=== PATIENT | male | born 1995 | race Caucasian/White ===

== ENCOUNTER 2016-10-04 20:43 | Emergency (ER) | payer BC ==
[2016-10-04 21:20] LABS: Hematocrit 41 % (42-52); Hemoglobin 14.1 g/dl (14.0-18.0); Mean Corpuscular HGB Conc 35 g/dl (31-36); Mean Corpuscular Hemoglobin 30 pg (27-31); Mean Corpuscular Volume 86 fL (80-94); Mean Platelet Volume 10 um3 (7.4-10.4); Red Cell Distribution Width 13 % (10.5-15); White Blood Count 8.4 10^3/ul (3.5-10.8)
[2016-10-04 21:31] LABS: Albumin 4.6 g/dL (3.2-5.2); BUN/Creatinine Ratio 5.7 (8-20); Calcium 9.5 mg/dL (8.6-10.3); EGFR Non-African American 110.4 (>60); Globulin 3.3 g/dL (2-4); Potassium 3.1 mmol/L (3.5-5.0); Total Bilirubin 0.8 mg/dL (0.2-1.0); Total Protein 7.9 g/dL (6.4-8.9)
[2016-10-04] MEDS ORDERED: Ketorolac INJ* 30 MG/ML 1 ML VIAL IV ONE (22:31)
[2016-10-04] MEDS ORDERED: NS 0.9% 1000 ML* 2,000 ML IV ONE (22:31)
[2016-10-04] MEDS ORDERED: Ondansetron INJ* 2 MG/ML VIAL IV ONE (22:31)
[2016-10-04] MEDS ORDERED: Acetaminophen TAB* 325 MG PO ONE (22:31)
[2016-10-04 22:35] LABS: Urine Bilirubin Negative (Negative); Urine Glucose Negative (Negative); Urine Nitrite Negative (Negative)
[2016-10-05] MEDS ORDERED: Ondansetron INJ* 2 MG/ML VIAL IV ONE (00:33)
[2016-10-05] MEDS ORDERED: Oseltamivir CAP* 75 MG PO ONE ×2 (00:35)
--- NOTE | 2016-10-05 00:40 | ED ---
Myke Bailey Karl, scribed for Kartik Fuentes MD on 10/04/16 at 2257 . HPI Febrile Illness - HPI Summary HPI Summary: Pt is a 20 y/o male that presents to the ED c/o flu-like symptoms. Pt reported that his symptoms began 3 days ago with nausea/vomiting, then 2 days ago he felt a sore throat, and since then he has had a fever (T-max 103.5 F). Pt also reported generalized myalgia, YEE, dry cough, dry mouth, and yesterday he had mild diarrhea. Pt also reported "heavy breathing" but denied diaphoresis. Pt stated he took 400 mg ibuprofen at 20:00 for his fever. - History of Current Complaint Chief Complaint: EDFever Time Seen by Provider: 10/04/16 22:25 Hx Obtained From: Patient Onset/Duration: Started Days Ago - 3, Atraumatic, Still Present Timing: Constant Temperature: 103.5 F Initial Severity: Moderate Current Severity: Moderate Aggravating Factors: Nothing Alleviating Factors: Nothing Associated Signs and Symptoms: Cough, Diarrhea, Headache, Myalgia, Nausea, Vomiting - Allergy/Home Medications Allergies/Adverse Reactions: Allergies Allergy/AdvReac Type Severity Reaction Status Date / Time No Known Allergies Allergy Verified 10/04/16 20:54 PMH/Surg Hx/FS Hx/Imm Hx Infectious Disease History: No Infectious Disease History: Reports: Traveled Outside the in Last 30 Days - [place] - Family History Known Family History: Positive: Cardiac Disease - mother - Social History Alcohol Use: Occasionally Alcohol Amount: less than once a month Substance Use Type: Reports: Marijuana Substance Use Comment - Amount & Last Used: occassional not within last 2 months Hx Tobacco Use: No Smoking Status (MU): Never Smoked Tobacco Review of Systems Positive: Fever Eyes: Negative Positive: Sore Throat Cardiovascular: Negative Positive: Cough Positive: Vomiting, Diarrhea, Nausea Genitourinary: Negative Positive: Myalgia Skin: Negative Positive: Headache Psychological: Normal All Other Systems Reviewed And Are Negative: Yes Physical Exam Triage Information Reviewed: Yes Vital Signs On Initial Exam: Initial Vitals Temp Pulse Resp BP Pulse Ox 103.5 F 124 19 144/78 99 10/04/16 20:48 10/04/16 20:48 10/04/16 20:48 10/04/16 20:48 10/04/16 20:48 Vital Signs Reviewed: Yes Appearance: Positive: No Pain Distress, Ill-Appearing - mild Skin: Positive: Warm, Skin Color Reflects Adequate Perfusion, Dry Head/Face: Positive: Normal Head/Face Inspection Eyes: Positive: EOMI, VANCE ENT: Positive: Normal ENT inspection Neck: Positive: Supple, Nontender Respiratory/Lung Sounds: Positive: Clear to Auscultation, Breath Sounds Present Cardiovascular: Positive: Tachycardia - at 124 bpm Abdomen Description: Positive: Nontender, Soft Bowel Sounds: Positive: Present Musculoskeletal: Positive: Normal, Strength/ROM Intact Neurological: Positive: Normal, Sensory/Motor Intact, Alert, Oriented to Person Place, Time Psychiatric: Positive: Affect/Mood Appropriate Diagnostics - Vital Signs Vital Signs Temp Pulse Resp BP Pulse Ox 10/04/16 20:48 103.5 F 124 19 144/78 99 - Laboratory Lab Results: Lab Results 10/04/16 10/04/16 Range/Units 21:05 21:05 WBC 8.4 (3.5-10.8) 10^3/ul RBC 4.70 (4.0-5.4) 10^6/ul Hgb 14.1 (14.0-18.0) g/dl Hct 41 L (42-52) % MCV 86 (80-94) fL MCH 30 (27-31) pg MCHC 35 (31-36) g/dl RDW 13 (10.5-15) % Plt Count 185 (150-450) 10^3/ul MPV 10 (7.4-10.4) um3 Neut % (Auto) 74.6 (38-83) % Lymph % (Auto) 11.4 L (25-47) % [place] % (Auto) 13.6 H (1-9) % Eos % (Auto) 0.1 (0-6) % Baso % (Auto) 0.3 (0-2) % Absolute Neuts (auto) 6.3 (1.5-7.7) 10^3/ul Absolute Lymphs (auto) 1.0 (1.0-4.8) 10^3/ul Absolute Monos (auto) 1.2 H (0-0.8) 10^3/ul Absolute Eos (auto) 0 (0-0.6) 10^3/ul Absolute Basos (auto) 0 (0-0.2) 10^3/ul Absolute Nucleated RBC 0 10^3/ul Nucleated RBC % 0 Sodium 134 (133-145) mmol/L Potassium 3.1 L (3.5-5.0) mmol/L Chloride 102 (101-111) mmol/L Carbon Dioxide 23 (22-32) mmol/L Anion Gap 9 (2-11) mmol/L BUN 5 L (6-24) mg/dL Creatinine 0.88 (0.67-1.17) mg/dL Est GFR ( Amer) 142.0 (>60) Est GFR (Non-Af Amer) 110.4 (>60) BUN/Creatinine Ratio 5.7 L (8-20) Glucose 135 H (70-100) mg/dL Calcium 9.5 (8.6-10.3) mg/dL Total Bilirubin 0.80 (0.2-1.0) mg/dL AST 23 (13-39) U/L ALT 32 (7-52) U/L Alkaline Phosphatase 53 (34-104) U/L Total Protein 7.9 (6.4-8.9) g/dL Albumin 4.6 (3.2-5.2) g/dL Globulin 3.3 (2-4) g/dL Albumin/Globulin Ratio 1.4 (1-3) Result Diagrams: 10/04/16 21:05 10/04/16 21:05 Lab Statement: Any lab studies that have been ordered have been reviewed, and results considered in the medical decision making process. Course/Dx - Course Assessment/Plan: DISCUSSED RESULTS WITH PATIENT. DISCHARGE HOME STABLE. - Diagnoses Provider Diagnoses: Influenza Discharge - Discharge Plan Condition: Stable Disposition: HOME Prescriptions: Ondansetron ODT TAB* [Zofran Odt TAB*] 4 mg PO Q6H PRN #10 tab.odt PRN Reason: Nausea Oseltamivir CAP* [Tamiflu CAP*] 75 mg PO BID #8 cap Patient Education Materials: Influenza (ED), Oseltamivir (By mouth), Acetaminophen (By mouth), Ibuprofen (By mouth) Referrals: [facility] @ [facility] [Outside] Additional Instructions: FOLLOW UP WITH [facility]. RETURN TO THE EMERGENCY DEPARTMENT FOR ANY WORSENING OF YOUR CONDITION OR QUESTIONS OR CONCERNS. The documentation as recorded by the Myke martinez Karl accurately reflects the service I personally performed and the decisions made by me, Kartik Fuentes MD.
[2016-10-05] MEDS ORDERED: Ondansetron ODT TAB* 4 MG ONE (00:48)
[2016-10-05 01:05] VITALS: BP 125/76
== END 2016-10-05 01:06 | disposition home or self-care (01) ==
LOC: ED 20:43
DX: J11.1 Influenza due to unidentified influenza virus with other respiratory manifestations (principal); R05 Cough; R19.7 Diarrhea, unspecified; R51 Headache; R11.2 Nausea with vomiting, unspecified
CPT/HCPCS: 36415; 80053; 81003; 85025; 87502; 96361; 96374; 96375; 99283; A9270-GY; J1885; J2405